=== PATIENT | male | born 1960 | race Caucasian/White ===

== ENCOUNTER 2018-04-30 10:52 | Emergency (ER) | payer MEDICAID ==
[2018-04-30 10:59] VITALS: BP 179/83
[2018-04-30] MEDS ORDERED: methylPREDNISolone Sodium Succinate 125 MG/2 ML SDV IM ONE (11:19)
--- NOTE | 2018-04-30 11:22 | EDM.PDOC ---
ED HPI GENERAL MEDICAL PROBLEM - General Chief Complaint: Lower Extremity Injury/Pain Stated Complaint: HIP PAINS [id number] Time Seen by Provider: 04/30/18 11:21 Source of Information: Reports: Patient, RN, RN Notes Reviewed History Limitations: Reports: No Limitations - History of Present Illness INITIAL COMMENTS - FREE TEXT/NARRATIVE: Pt to ER with c/o pain in the right hip. Patient states he was in his back yard last evening when he turned and felt a "pop" in the right hip. Patient denies having any problem in the past with the hip. He states he tried to make an appointment with the chiropractor and is unable to get in until Thursday. He admits to numbness and tingling down the right leg as well as a sharp stabbing pain down the right leg. He denies any saddle anesthesia, bowel or bladder incontinence. States is able to bear weight, but is painful. Onset: Sudden Right Hip Pain Score (Numeric/FACES): 10 - Related Data Allergies Allergy/AdvReac Type Severity Reaction Status Date / Time No Known Allergies Allergy Verified 04/30/18 10:59 Home Meds: Home Meds . [No Known Home Meds] 04/30/18 [History] Past Medical History - Past Health History Medical/Surgical History: Denies Medical/Surgical History Social & Family History - Tobacco Use Smoking Status *Q: Never Smoker Second Hand Smoke Exposure: No - Recreational Drug Use Recreational Drug Use: No Review of Systems - Review of Systems Review Of Systems: ROS reveals no pertinent complaints other than HPI. ED EXAM, GENERAL - Physical Exam Exam: See Below Exam Limited By: No Limitations General Appearance: Alert, WD/WN, Moderate Distress Eye Exam: Bilateral Eye: EOMI, Normal Inspection Ears: Normal External Exam, Hearing Grossly Normal Nose: Normal Inspection Throat/Mouth: Normal Inspection, Normal Voice, No Airway Compromise Head: Atraumatic, Normocephalic Neck: Normal Inspection, Supple, Non-Tender, Full Range of Motion Respiratory/Chest: No Respiratory Distress, Lungs Clear, Normal Breath Sounds, No Accessory Muscle Use, Chest Non-Tender Cardiovascular: Normal Peripheral Pulses, Regular Rate, Rhythm, No Edema, No Gallop, No JVD, No Murmur, No Rub Peripheral Pulses: 2+: Radial (L), Radial (R) GI/Abdominal: Normal Bowel Sounds, Soft, Non-Tender (Male) Exam: Deferred Rectal (Males) Exam: Deferred Back Exam: Normal Inspection, Decreased Range of Motion Extremities: Normal Inspection, Normal Capillary Refill, Leg Pain (right leg sciatical), Limited Range of Motion Neurological: Alert, Oriented, CN II-XII Intact, Normal Cognition, Abnormal Gait (right limp) Psychiatric: Normal Affect, Normal Mood, Anxious Skin Exam: Warm, Dry, Intact, Normal Color, No Rash Lymphatic: No Adenopathy Course - Vital Signs Last Recorded V/S: Last Vital Signs Temp 97.6 F 04/30/18 10:56 Pulse 57 L 04/30/18 10:56 Resp 18 04/30/18 10:56 BP 179/83 H 04/30/18 10:56 Pulse Ox 100 04/30/18 10:56 - Orders/Labs/Meds Meds: Medications Discontinued Medications Generic Name Dose Route Start Last Admin Trade Name Freq PRN Reason Stop Dose Admin Methylprednisolone Sodium Succinate 125 mg 04/30/18 11:19 04/30/18 11:37 Solu-Medrol IM 04/30/18 11:20 125 mg ONETIME ONE Administration Orphenadrine Citrate 60 mg 04/30/18 11:30 04/30/18 11:36 Norflex IM 60 mg Q12H CHAYO Administration - Radiology Interpretation Free Text/Narrative:: Right hip xray: No acute findings Lumbar spine xray: Degenerative findings, arthritis. No fracture. See rad report Departure - Departure Time of Disposition: 11:53 Disposition: Home, Self-Care 01 Condition: Fair Clinical Impression: Sprain of hip, Muscle strain, Right sided sciatica - Discharge Information *PRESCRIPTION DRUG MONITORING PROGRAM REVIEWED*: No *COPY OF PRESCRIPTION DRUG MONITORING REPORT IN PATIENT AMANDA: No Instructions: Hip Pain, Muscle Strain, [id number] Referrals: PCP,None [Primary Care Provider] - Forms: ED Department Discharge Additional Instructions: RX: Flexeril, Prednisone Take ibuprofen as directed for pain Follow up with your primary care facility if no improvement for MRI
--- NOTE | 2018-04-30 11:38 | CR ---
Clinical history: 57-year-old male felt a "pop" and is now experiencing "numbness and tingling down the right leg". Interpretation: AP lateral lumbosacral spine films abnormal. 1. Signs of chronic multilevel mid and lower lumbar disc disease i.e. interspace narrowing with endplate sclerosis and hypertrophic marginal spondylosis particularly L4-5 and L5-S1 levels (marginal spondylosis proximally as well). 2. Homogeneous age/gender appropriate bone mineral density. No pathologic skeletal lesion, lumbar fracture or dislocation. 3. Symmetric spacing normal-appearing SI joints but asymmetric narrowing of the right hip joint with bony eburnation. CONCLUSION: Abnormal... Multilevel disc disease and arthritis, lumbar spine. No fractures.
--- NOTE | 2018-04-30 11:40 | CR ---
Clinical history: 57-year-old male ER after hearing a "pop" and experiencing "numbness/tingling down the right leg" ("multilevel disc disease and arthritis lumbar spine" demonstrate plain film exam of the spine). Interpretation: Abnormal. Asymmetric narrowing right hip joint with associated dense bony eburnation characteristic of chronic arthritis. No pathologic skeletal lesion. No fracture or dislocation right hip.
== END 2018-04-30 11:57 | disposition home or self-care (01) ==
LOC: DL.ED 10:52
DX: S73.101A Unspecified sprain of right hip, initial encounter (principal); M54.31 Sciatica, right side; X50.0XXA Overexertion from strenuous movement or load, initial encounter
CPT/HCPCS: 72100; 73502; 96372; 99283; J2360; J2930

== ENCOUNTER 2018-11-10 21:36 | Emergency (ER) | payer MEDICAID, OTHER ==
[2018-11-10 21:42] VITALS: PULSE 101
[2018-11-10] MEDS ORDERED: Nitroglycerin 0.4 MG Tab.SL SL ONE (21:45)
[2018-11-10] MEDS ORDERED: Aspirin 81 MG Tab.Chew PO ONE (21:45)
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
[2018-11-10 22:00] VITALS: BP 183/94
[2018-11-10] MEDS ORDERED: Sodium Chloride 0.9% 1,000 ML IV ONE (22:07)
[2018-11-10 22:12] LABS: ANION GAP 16.4; CHLORIDE,CL 99 mmol/L (101-111); SODIUM,NA 136 mmol/L (135-145)
[2018-11-10] MEDS ORDERED: Morphine 2 MG/ML Syringe IVPUSH ONE ×2 (22:12→22:56)
[2018-11-10] MEDS ORDERED: Heparin Sodium 5,000 Units/ML Vial IVPUSH ONE (22:55)
[2018-11-10] MEDS ORDERED: Heparin Sodium/0.45% NaCl 25,000 UNITS/500 ML BAG IV ONE (22:56)
[2018-11-10] MEDS ORDERED: Sodium Chloride 0.9% 500 ML IV SCH (22:58)
== END 2018-11-10 23:28 ==
LOC: DL.ED 21:36
DX: I20.0 Unstable angina (principal); I10 Essential (primary) hypertension; Z79.899 Other long term (current) drug therapy
CPT/HCPCS: 36415; 71045; 80053; 84484; 85025; 93005; 96361; 96374; 96375; 96376; 99285; A9270; J1644; J2270; J7030; J7040

== ENCOUNTER 2019-11-14 10:07 | Emergency (ER) | payer MEDICAID ==
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
[2019-11-14] MEDS ORDERED: Sodium Chloride 0.9% 10 ML Syringe FLUSH PRN (10:20)
[2019-11-14] MEDS ORDERED: Aspirin 81 MG Tab.Chew PO ONE (10:24)
[2019-11-14] MEDS ORDERED: Diltiazem 25 MG/5 ML SDV IVPUSH ONE (10:24)
[2019-11-14] MEDS ORDERED: Diltiazem 125 MG in Sodium Chloride 0.9% 100 ML IV SCH (10:30)
[2019-11-14 10:49] LABS: PTT,PARTIAL THROMBOPLSTIN TIME 23.4 SEC (22.0-34.0)
[2019-11-14 11:07] LABS: ANION GAP 13.7 mEq/L (7-13); CHLORIDE,CL 101 mmol/L (98-107); SODIUM,NA 136 mmol/L (136-145)
--- NOTE | 2019-11-14 11:12 | CR ---
PROCEDURE INFORMATION: Exam: XR Chest, 1 View Exam date and time: 11/14/2019 10:54 AM Age: 58 years old Clinical indication: Shortness of breath; Additional info: Shortness of breath, tachycardia TECHNIQUE: Imaging protocol: XR of the chest Views: 1 view. COMPARISON: CR Chest 1V Frontal 11/10/2018 9:42 PM FINDINGS: Lungs: Unremarkable. No consolidation. Pleural space: Unremarkable. No pleural effusion. No pneumothorax. Heart/Mediastinum: The heart is moderately enlarged. Bones/joints: Unremarkable. IMPRESSION: Moderate cardiomegaly without acute cardiopulmonary disease.
[2019-11-14 11:53] VITALS: BP 143/103; PULSE 137
== END 2019-11-14 12:30 ==
LOC: DL.ED 10:07
DX: I48.91 Unspecified atrial fibrillation (principal); I51.7 Cardiomegaly; I25.10 Atherosclerotic heart disease of native coronary artery without angina pectoris; I10 Essential (primary) hypertension; I25.2 Old myocardial infarction; Z79.02 Long term (current) use of antithrombotics/antiplatelets; Z79.899 Other long term (current) drug therapy; Z95.5 Presence of coronary angioplasty implant and graft; Z91.14 Patient's other noncompliance with medication regimen
CPT/HCPCS: 36415; 71045; 80053; 83735; 83880; 84443; 84484; 85025; 85379; 85610; 85730; 93005; 96365; 96366; 99285; A9270; J3490; J7050; 93010; 99284

== ENCOUNTER 2021-04-08 22:32 | Emergency (ER) | payer MEDICAID ==
[2021-04-08 22:50] VITALS: BP 163/100; PULSE 98
[2021-04-08] MEDS: Lidocaine 1% 30 ML SDV INJECT ONE (23:20)
[2021-04-08] MEDS: Bacitracin Oint 1 GM U/D Packet TOP ONE (23:45)
== END 2021-04-08 23:50 | disposition home or self-care (01) ==
LOC: DL.ED 22:32
DX: S01.311A Laceration without foreign body of right ear, initial encounter (principal); I25.10 Atherosclerotic heart disease of native coronary artery without angina pectoris; I10 Essential (primary) hypertension; I25.2 Old myocardial infarction; Z95.5 Presence of coronary angioplasty implant and graft; Z79.02 Long term (current) use of antithrombotics/antiplatelets; Z79.899 Other long term (current) drug therapy; Y04.2XXA Assault by strike against or bumped into by another person, initial encounter; Y92.009 Unspecified place in unspecified non-institutional (private) residence as the place of occurrence of the external cause
CPT/HCPCS: 12011; 99283-25

== ENCOUNTER 2022-07-23 05:18 | Emergency (ER) | payer MEDICAID ==
[2022-07-23] MEDS ORDERED: Acetaminophen 500 MG Tab PO ONE (06:09)
[2022-07-23] MEDS ORDERED: Diphtheria,Pertussis(Acell),Tetanus Vaccine 0.5 ML Syringe IM ONE (06:09)
[2022-07-23 06:29] VITALS: BP 130/96; PULSE 70
== END 2022-07-23 06:28 | disposition home or self-care (01) ==
LOC: DL.ED 05:18
DX: S01.01XA Laceration without foreign body of scalp, initial encounter (principal); I25.2 Old myocardial infarction; I10 Essential (primary) hypertension; I25.10 Atherosclerotic heart disease of native coronary artery without angina pectoris; Z95.5 Presence of coronary angioplasty implant and graft; Z23 Encounter for immunization; Z79.02 Long term (current) use of antithrombotics/antiplatelets; Z79.899 Other long term (current) drug therapy; W18.42XA Slipping, tripping and stumbling without falling due to stepping into hole or opening, initial encounter
CPT/HCPCS: 12001; 90471; 90715; 99282; 99283; A9270

== ENCOUNTER 2022-12-04 19:04 | Emergency (ER) | payer MEDICAID ==
[2022-12-04 19:27] VITALS: BP 164/97; PULSE 87
[2022-12-04] MEDS ORDERED: Gentamicin 0.3% Ophth Soln 5 ML Bottle ONE (19:36)
[2022-12-04] MEDS ORDERED: Gentamicin 0.3% Ophth Soln 5 ML Bottle EYELF ONE (19:37)
== END 2022-12-04 19:51 | disposition home or self-care (01) ==
LOC: DL.ED 19:04
DX: H10.32 Unspecified acute conjunctivitis, left eye (principal); I25.10 Atherosclerotic heart disease of native coronary artery without angina pectoris; I10 Essential (primary) hypertension; I25.2 Old myocardial infarction; Z79.899 Other long term (current) drug therapy
CPT/HCPCS: 99283; A9270